=== PATIENT | female | born 1995 | race Caucasian/White ===

== ENCOUNTER 2017-12-09 20:35 | Emergency (ER) | payer OTHER ==
[~2017-12-09] VITALS: Ht 149.9 cm; Wt 59.1 kg
[2017-12-09 21:42] LABS: GLUCOSE,POINT OF CARE 89 MG/DL (70-110)
[2017-12-09 22:43] VITALS: BP 114/78
== END 2017-12-09 22:51 | disposition home or self-care (01) ==
LOC: EDBD 20:37 → EMS 20:37
DX: R55 Syncope and collapse (principal); F41.9 Anxiety disorder, unspecified; R20.0 Anesthesia of skin; J45.909 Unspecified asthma, uncomplicated
CPT/HCPCS: 82948; 82962; 93005; 99285